=== PATIENT | female | born 1995 | race Caucasian/White ===

== ENCOUNTER 2017-06-03 20:44 | Emergency (ER) | payer MEDICAID ==
[~2017-06-03] VITALS: Ht 167.6 cm; Wt 81.6 kg
[2017-06-03 20:48] VITALS: BP_SYST 110
== END 2017-06-03 21:54 | disposition left against medical advice (07) ==
LOC: SED 20:44
DX: H57.8 Other specified disorders of eye and adnexa (principal); Z53.21 Procedure and treatment not carried out due to patient leaving prior to being seen by health care provider

== ENCOUNTER 2017-10-12 14:47 | Emergency (ER) | payer MEDICAID ==
[~2017-10-12] VITALS: Ht 167.6 cm; Wt 79.4 kg
[2017-10-12 15:02] VITALS: BP_SYST 116
[2017-10-12] MEDS ORDERED: ONDANSETRON 4 MG ODT TAB PO ONE (15:45)
[2017-10-12 16:11] LABS: BASOPHILS # (AUTO) 0.2 K/uL (0.0-0.2); BASOPHILS % (AUTO) 1.9 % (0.0-2.0); EOSINOPHILS # (AUTO) 0.1 K/uL (0.0-0.4); EOSINOPHILS % (AUTO) 1.1 % (0.0-4.0); HEMATOCRIT 40.8 % (36-48); HEMOGLOBIN 13.9 g/dL (12.0-16.0); LYMPHOCYTES # (AUTO) 2.3 K/uL (1.0-5.5); LYMPHOCYTES % (AUTO) 23.5 % (20.5-51.5); MEAN CORPUSCULAR HEMOGLOBIN 31 pg (27-31); MEAN CORPUSCULAR HGB CONC 34 % (32-36); MEAN CORPUSCULAR VOLUME 90 fL (79.0-98.0); MONOCYTES # (AUTO) 0.9 K/uL (0.0-1.0); MONOCYTES % (AUTO) 9.4 % (1.7-9.3); NEUTROPHILS # (AUTO) 6.1 K/uL (1.8-7.7); NEUTROPHILS % (AUTO) 64.1 % (40.0-70.0); PLATELET COUNT (AUTO) 266 K/uL (130-430); RED BLOOD CELL COUNT(AUTO) 4.55 MIL/uL (4.2-6.2); RED CELL DISTRIBUTION WIDTH 12.5 % (9.0-15.0); WHITE BLOOD COUNT (AUTO) 9.6 K/uL (4.8-10.8)
[2017-10-12 16:21] LABS: BILIRUBIN,URINE NEGATIVE (NEGATIVE); BLOOD, URINE 3+ (NEGATIVE); CLARITY/URINE SL CLOUDY (CLEAR); COLOR,URINE YELLOW (YELLOW); GLUCOSE,URINE NEGATIVE (NEGATIVE); KETONES,URINE NEGATIVE (NEGATIVE); LEUKOCYTE ESTERASE ,URINE NEGATIVE (NEGATIVE); NITRITE, URINE NEGATIVE (NEGATIVE); PROTEIN URINE NEGATIVE (NEGATIVE)
[2017-10-12 16:44] LABS: BACTERIA,URINE MODERATE /HPF (None Seen); MUCUS,URINE 2+ /LPF (None Seen)
[2017-10-12 16:45] LABS: CALCIUM 9.4 mg/dL (8.4-11.0); CREATININE 0.88 mg/dL (0.55-1.30); POTASSIUM 3.6 mmol/L (3.5-5.1)
[2017-10-12] MEDS ORDERED: KETOROLAC TROMETHAMINE 15 MG VIAL IM ONE (17:00)
[2017-10-12 17:07] VITALS: BP_SYST 120
== END 2017-10-12 17:07 | disposition home or self-care (01) ==
LOC: SED 14:47
DX: I73.00 Raynaud's syndrome without gangrene (principal); N39.0 Urinary tract infection, site not specified; J45.909 Unspecified asthma, uncomplicated; Z86.2 Personal history of diseases of the blood and blood-forming organs and certain disorders involving the immune mechanism
CPT/HCPCS: 36415; 80048; 81000; 81025; 83690; 85025; 87086; 96372; 99284; J1885; Q0162

== ENCOUNTER 2023-02-21 20:47 | Emergency (ER) | payer MEDICAID | END 2023-02-21 21:40 | disposition left against medical advice (07) | LOC: SED 20:47 | DX: T78.40XA Allergy, unspecified, initial encounter (principal); Z53.21 Procedure and treatment not carried out due to patient leaving prior to being seen by health care provider; X58.XXXA Exposure to other specified factors, initial encounter ==

== ENCOUNTER 2023-09-29 10:57 | Emergency (ER) | payer MEDICAID, OTHER ==
[~2023-09-29] VITALS: Ht 170.2 cm; Wt 98.9 kg
[2023-09-29 11:06] VITALS: BP_SYST 135; PULSE 82; RESP 18; TEMP 97.4; O2SAT 97
[2023-09-29 11:43] LABS: BASOPHILS # (AUTO) 0.1 K/uL (0.0-0.2); BASOPHILS % (AUTO) 0.7 % (0.0-2.0); EOSINOPHILS # (AUTO) 0.2 K/uL (0.0-0.4); EOSINOPHILS % (AUTO) 1.4 % (0.0-4.0); HEMOGLOBIN 13.9 g/dL (12.0-16.0); LYMPHOCYTES # (AUTO) 2.3 K/uL (1.0-5.5); LYMPHOCYTES % (AUTO) 17.7 % (20.5-51.5); MEAN CORPUSCULAR HEMOGLOBIN 30 pg (27-31); MEAN CORPUSCULAR HGB CONC 34 % (32-36); MEAN CORPUSCULAR VOLUME 88 fL (79.0-98.0); MONOCYTES # (AUTO) 0.8 K/uL (0.0-1.0); MONOCYTES % (AUTO) 6.6 % (1.7-9.3); NEUTROPHILS # (AUTO) 9.4 K/uL (1.8-7.7); NEUTROPHILS % (AUTO) 73.6 % (40.0-70.0); PLATELET COUNT (AUTO) 311 K/uL (130-430); RED BLOOD CELL COUNT(AUTO) 4.67 MIL/uL (4.2-6.2); RED CELL DISTRIBUTION WIDTH 12.8 % (9.0-15.0); WHITE BLOOD COUNT (AUTO) 12.8 K/uL (4.8-10.8)
[2023-09-29] MEDS: ONDANSETRON 4 MG ODT TAB PO ONE (11:43)
[2023-09-29 12:07] LABS: PROTHROMBIN TIME 10.4 SECS (9.5-12.5)
[2023-09-29 12:17] LABS: SERUM HCG (QUALITATIVE) NEGATIVE (NEGATIVE)
[2023-09-29 12:23] LABS: ALANINE AMINOTRANSFERASE 35 U/L (12-78); ANION GAP 10 (5-15); ASPARTATE AMINOTRANSFERASE 20 U/L (10-37); CARBON DIOXIDE 25 mmol/L (23-29); CHLORIDE 105 mmol/L (98-107); GFR AFRICAN AMERICAN 108 mL/min (>90); GFR NON AFRICAN-AMERICAN 90 mL/min (>90); GLUCOSE 84 mg/dL (74-106); POTASSIUM 4.2 mmol/L (3.5-5.1); SODIUM SERUM 140 mmol/L (136-145); TOTAL BILIRUBIN 0.8 mg/dL (0.0-1.0); TOTAL PROTEIN, SERUM 8.1 g/dL (6.4-8.3); UREA NITROGEN, BLOOD 13 mg/dL (8-21)
[2023-09-29 12:32] LABS: AMYLASE 57 U/L (0-100); BILIRUBIN,DIRECT 0.1 mg/dL (0.0-0.3); LIPASE 32 U/L (16-77)
[2023-09-29] MEDS ORDERED: ONDA-8 TL (12:56)
[2023-09-29] MEDS: NACL 0.9% 1,000 ML IV ONE (12:59)
[2023-09-29 13:14] LABS: ACETONE, SERUM NEGATIVE (NEGATIVE)
[2023-09-29 14:28] VITALS: BP_SYST 122; PULSE 61; RESP 16; TEMP 97.4; O2SAT 98
== END 2023-09-29 14:27 | disposition home or self-care (01) ==
LOC: SED 10:57
DX: A05.9 Bacterial foodborne intoxication, unspecified (principal); R50.9 Fever, unspecified; R05.9 Cough, unspecified; R53.1 Weakness; J45.909 Unspecified asthma, uncomplicated
CPT/HCPCS: 99284; 96360; 80076; 80048; 82009; 82150; 84703; 83690; 85025; 85610; 85730; 84484; 36415; 93005; 83605; 82397; Q0162; J7030

== ENCOUNTER 2023-10-11 14:50 | Emergency (ER) | payer OTHER ==
[~2023-10-11] VITALS: Ht 170.2 cm; Wt 98.0 kg
[~2023-10-11 14:50] MED LIST: ONDA-8 TL
[2023-10-11 15:03] VITALS: BP_SYST 110; PULSE 93; RESP 18; TEMP 98.1; O2SAT 97
[2023-10-11 15:51] LABS: BILIRUBIN,URINE NEGATIVE (NEGATIVE); BLOOD, URINE NEGATIVE (NEGATIVE); CLARITY/URINE CLEAR (CLEAR); COLOR,URINE YELLOW (YELLOW); GLUCOSE,URINE NEGATIVE (NEGATIVE); HCG,QUAL RESULT NEGATIVE (NEGATIVE); KETONES,URINE NEGATIVE (NEGATIVE); LEUKOCYTE ESTERASE ,URINE NEGATIVE (NEGATIVE); NITRITE, URINE NEGATIVE (NEGATIVE); PH,URINE 5.5 (5.0-8.0); PROTEIN URINE NEGATIVE (NEGATIVE); UROBILINOGEN,URINE 0.2 (0.2-1.0)
[2023-10-11] MEDS: KETOROLAC TROMETHAMINE 30 MG VIAL IM ONE (18:39)
[2023-10-11 20:48] LABS: BASOPHILS # (AUTO) 0.1 K/uL (0.0-0.2); BASOPHILS % (AUTO) 0.9 % (0.0-2.0); EOSINOPHILS # (AUTO) 0.3 K/uL (0.0-0.4); EOSINOPHILS % (AUTO) 2.5 % (0.0-4.0); HEMATOCRIT 37.9 % (36-48); LYMPHOCYTES # (AUTO) 2.9 K/uL (1.0-5.5); LYMPHOCYTES % (AUTO) 21.9 % (20.5-51.5); MEAN CORPUSCULAR HEMOGLOBIN 30 pg (27-31); MEAN CORPUSCULAR HGB CONC 34 % (32-36); MEAN CORPUSCULAR VOLUME 87 fL (79.0-98.0); MONOCYTES # (AUTO) 1.2 K/uL (0.0-1.0); MONOCYTES % (AUTO) 8.9 % (1.7-9.3); NEUTROPHILS # (AUTO) 8.7 K/uL (1.8-7.7); NEUTROPHILS % (AUTO) 65.8 % (40.0-70.0); PLATELET COUNT (AUTO) 262 K/uL (130-430); RED BLOOD CELL COUNT(AUTO) 4.37 MIL/uL (4.2-6.2); RED CELL DISTRIBUTION WIDTH 13.4 % (9.0-15.0); WHITE BLOOD COUNT (AUTO) 13.2 K/uL (4.8-10.8)
[2023-10-11] MEDS: NACL 0.9% 1,000 ML IV ONE (20:55)
[2023-10-11] MEDS: MORPHINE 4 MG INJ. 4 MG/ML VIAL IVP ONE (20:56)
[2023-10-11] MEDS: ONDANSETRON HCL 4 MG/2 ML VIAL IVP ONE ×2 (20:57→21:51)
[2023-10-11] MEDS: KETOROLAC TROMETHAMINE 15 MG VIAL IVP ONE (20:57)
[2023-10-11 21:01] LABS: ALBUMIN 3.8 g/dL (3.4-4.8); BILIRUBIN,DIRECT 0.1 mg/dL (0.0-0.3); CALCIUM 8.8 mg/dL (8.4-11.0); CREATININE 0.67 mg/dL (0.55-1.30); POTASSIUM 3.7 mmol/L (3.5-5.1); TOTAL BILIRUBIN 0.4 mg/dL (0.0-1.0); TOTAL PROTEIN, SERUM 7.2 g/dL (6.4-8.3)
[2023-10-11] MEDS ORDERED: HYDR-3917 PO (22:05)
[2023-10-11] MEDS ORDERED: ONDA-8 TL (22:05)
[2023-10-11] MEDS ORDERED: IBUP-1971 PO (22:05)
[2023-10-12 00:30] VITALS: BP_SYST 113; PULSE 76; RESP 18; TEMP 97.6; O2SAT 98
== END 2023-10-12 00:30 | disposition home or self-care (01) ==
LOC: SED 14:50
DX: R10.2 Pelvic and perineal pain (principal); J45.909 Unspecified asthma, uncomplicated
CPT/HCPCS: 99285; 74176; 96374; 76830; 76857; 96375; 96361; 80076; 80048; 81001; 84703; 83690; 85025; 36415; 96376; 81025; 96372; 81003; J1885 ×2; J2405; J7030; J2270